=== PATIENT | male | born 1975 | race Two or more races ===

== ENCOUNTER → 2018-06-19 | Outpatient (CLI) | payer OTHER ==
[2018-06-19 08:32] LABS: BASO # 0.1 x10^3/uL (0.0-0.2); BASO % 1 % (0-3); EOS # 0.2 x10^3/uL (0.0-0.7); EOS % 2 % (0-3); HEMOGLOBIN 15.9 g/dL (13.0-17.5); LYMPH # 2.8 x10^3/uL (1.0-4.8); LYMPH % 39 % (24-48); MEAN CORPUSCULAR HEMOGLOBIN 29 pg (25-35); MEAN CORPUSCULAR HGB CONC 34 g/dL (31-37); MEAN CORPUSCULAR VOLUME 85 fL (79-100); MONO # 0.6 x10^3/uL (0.0-1.1); MONO % 9 % (0-9); NEUT # 3.5 x10^3uL (1.8-7.7); NEUT % 49 % (31-73); PLATELET COUNT 196 x10^3/uL (140-400); RED BLOOD COUNT 5.51 x10^6/uL (4.30-5.70); RED CELL DISTRIBUTION WIDTH 12.7 % (11.5-14.5); WHITE BLOOD COUNT 7.1 x10^3/uL (4.0-11.0)
[2018-06-19 08:36] LABS: ALBUMIN 4.1 g/dL (3.4-5.0); ALBUMIN/GLOBULIN RATIO 1.3 (1.0-1.7); CALCIUM 9.2 mg/dL (8.5-10.1); CREATININE 1.2 mg/dL (0.7-1.3); DIRECT BILIRUBIN 0.3 mg/dL (0.0-0.2); GFR 66.1; POTASSIUM 4.6 mmol/L (3.5-5.1); TOTAL BILIRUBIN 1.9 mg/dL (0.2-1.0); TOTAL PROTEIN 7.3 g/dL (6.4-8.2)
[2018-06-19 08:38] LABS: CHOLESTEROL/HDL RATIO 5.3
[2018-06-19 23:14] LABS: HEMOGLOBIN A1C 5.6 % (4.8-5.6)
== END | disposition home or self-care (01) ==
LOC: LAB 07:27
PROVIDERS: ATTEND Nurse Practitioner Family
DX: Z00.00 Encounter for general adult medical examination without abnormal findings (principal); R17 Unspecified jaundice
CPT/HCPCS: 36415; 80053; 80061; 82248; 83036; 83615; 84443; 85025

== ENCOUNTER → 2018-07-16 | Outpatient (CLI) | payer OTHER ==
--- NOTE | 2018-07-16 15:45 | EKG ---
[facility] [address] [place] [address] Test Date: 2018-07-16 Test Time: 15:39:33 Pat Name: QUENTIN SAMANO Department: Room: Gender: M Tear Down Matcher: AUGUSTO : 1975 Requested By: ALPHONSO ZEPEDA Order Number: [id number] Reading MD: Angelo Be MD Measurements Intervals [place] Rate: 79 P: 38 OR: 172 QRS: 90 QRSD: 94 T: 24 QT: 360 QTc: 414 Interpretive Statements SINUS RHYTHM Electronically Signed On 07-23-2018 13:49:19 CDT by Angelo Be MD
--- NOTE | 2018-07-16 16:04 | RAD ---
EXAM: Chest, 2 views. HISTORY: Epigastric pain. COMPARISON: None. FINDINGS: 2 views the chest are obtained. There is no infiltrate, pleural effusion or pneumothorax. The heart is normal in size. There are coarse likely chronic interstitial markings. IMPRESSION: No acute pulmonary finding. Electronically signed by: Sunita Valentin MD (07/16/2018 4:01 PM) [id number]
== END | disposition home or self-care (01) ==
LOC: RAD 15:24
PROVIDERS: ATTEND Family Medicine
DX: I45.10 Unspecified right bundle-branch block (principal)
CPT/HCPCS: 71046; 93005

== ENCOUNTER 2018-12-03 13:42 | Emergency (ER) | payer OTHER ==
[~2018-12-03] VITALS: Ht 175.3 cm; Wt 90.7 kg
[2018-12-03] MEDS ORDERED: KETOROLAC 60 MG/2 ML VIAL. IM ONE (15:30)
[2018-12-03] MEDS ORDERED: methylPREDNISolone SOD SUCC PF 125 MG/2 ML VIAL. IM ONE (15:30)
--- NOTE | 2018-12-03 15:48 | RAD ---
3 views lumbar spine 12/03/2018 INDICATION: Low back pain, new onset. No trauma. COMPARISON STUDY: None available. FINDINGS: No evidence of acute fracture or alignment abnormality is identified. Vertebral body heights are maintained. Disc spaces are maintained. No evidence of spondylolysis or spondylolisthesis is seen. No acute soft tissue changes are identified. IMPRESSION: No radiographic evidence of acute osseous abnormality. Electronically signed by: William Vang MD (12/03/2018 3:45 PM) [id number]
[2018-12-03 15:53] VITALS: BP 128/71
--- NOTE | 2018-12-03 16:06 | PHYS DOC ---
Adult General Chief Complaint Chief Complaint: BACK PAIN - NO INJURY HPI HPI Patient is a 43 year old male with no significant medical history who presents to the ED today complaining of moderate bilateral low back pain nonradiating in nature described as sharp and constant that has been going on since yesterday worse on standing up and ambulating. Patient denies any known injury. Denies any loss of bowel bladder function. Denies anything specifically relieving the pain. Off not patient works at [employer]. Review of Systems Review of Systems Constitutional: Denies fever or chills [] GI: Denies abdominal pain, nausea, vomiting, bloody stools or diarrhea [] : Denies dysuria or hematuria [] Musculoskeletal: Reports low back pain Integument: Denies rash or skin lesions [] Neurologic: Denies headache, focal weakness or sensory changes [] All other systems were reviewed and found to be within normal limits, except as documented in this note. Current Medications Current Medications Current Medications Medications (Trade) Dose Ordered Sig/Joyce Start Time Stop Time Status Last Admin Dose Admin Ketorolac Tromethamine (Toradol Im) 60 mg 1X ONCE 12/03/18 15:30 12/03/18 15:58 DC 12/03/18 16:09 60 MG Methylprednisolone Sodium Succinate (SOLU-Medrol 125MG VIAL) 125 mg 1X ONCE 12/03/18 15:30 12/03/18 15:58 DC 12/03/18 16:08 125 MG Allergies Allergies Allergies Coded Allergies Type Severity Reaction Last Updated Verified No Known Drug Allergies 12/03/18 No Physical Exam Physical Exam Constitutional: Well developed, well nourished, no acute distress, non-toxic appearance. [] Skin: Warm, dry, no erythema, no rash. [] Back: Breast noted to the lumbar spine, diffuse paraspinal muscle tenderness bilateral lumbar spine, no midline lumbar spine tenderness, no CVA tenderness. Straight leg raises not attempted because patient is comfortable in sitting position. Extremities: No tenderness, no cyanosis, no clubbing, ROM intact, no edema. [] Neurologic: Alert and oriented X 3, normal motor function, normal sensory functi on, no focal deficits noted. [] Psychologic: Affect normal, judgement normal, mood normal. [] Current Patient Data Vital Signs Vital Signs Date Time Temp Pulse Resp B/P (MAP) Pulse Ox O2 Delivery O2 Flow Rate FiO2 12/03/18 15:53 98.2 79 16 128/71 (90) 98 Room Air 98.2 EKG EKG [] Radiology/Procedures Radiology/Procedures []PROCEDURE: LUMBAR SPINE 2-3V 3 views lumbar spine 12/03/2018 INDICATION: Low back pain, new onset. No trauma. COMPARISON STUDY: None available. FINDINGS: No evidence of acute fracture or alignment abnormality is identified. Vertebral body heights are maintained. Disc spaces are maintained. No evidence of spondylolysis or spondylolisthesis is seen. No acute soft tissue changes are identified. IMPRESSION: No radiographic evidence of acute osseous abnormality. Electronically signed by: William Moreno MD (12/03/2018 3:45 PM) [id number] DICTATED and SIGNED BY: WILLIAM MORENO MD DATE: 12/03/18 1545 Course & Med Decision Making Course & Med Decision Making Pertinent Labs and Imaging studies reviewed. (See chart for details) This is a 43-year-old male patient who presents to the ED today complaining of bilateral low back pain that began yesterday, no known injury, no cauda equina syndrome symptoms. Lumbar spine x-rays are negative for any acute findings. Patient to be discharged to home. Instructed to apply heat to ice to the affected area. Given prescription for pain medicine Dragon Disclaimer Dragon Disclaimer This electronic medical record was generated, in whole or in part, using a voice recognition dictation system. Departure Departure Impression: Primary Impression: Low back pain Disposition: HOME, SELF-CARE Condition: STABLE Referrals: ALPHONSO ZEPEDA MD (PCP) follow up in 7 days Patient Instructions: Back Pain, Adult, [id number] Additional Instructions: You were evaluated for low back pain, your lumbar spine x-rays are negative for any acute findings. Try to apply heat or ice to the affected area. Take the prescribed medications as ordered. Follow-up with your doctor in the course of this week. Scripts Hydrocodone/Apap 5-325 (NORCO 5-325 TABLET) 1 Each Tablet 1 TAB PO Q6HRS PRN for SEVERE PAIN 7-10, #20 TAB Prov: [employer] 12/03/18 Diclofenac Sodium (DICLOFENAC SODIUM) 50 Mg Tablet.dr 1 TAB PO BID, #20 TAB 0 Refills Prov: [employer] DIRECT[employer] 12/03/18 Cyclobenzaprine Hcl (CYCLOBENZAPRINE HCL) 10 Mg Tablet 1 TAB PO TID, #30 TAB Prov: CHANTE BOLAÑOS YUE 12/03/18 Methylprednisolone (MEDROL) 4 Mg Tab.ds.pk 1 PKG PO UD, #1 PKG Prov: CHANTE BOLAÑOS YUE 12/03/18 Problem Qualifiers Primary Impression: Low back pain Chronicity: acute Back pain laterality: bilateral Sciatica presence: without sciatica Qualified Codes: M54.5 - Low back pain CHANTE BOLAÑOS YUE Dec 03, 2018 16:06
[2018-12-03] MEDS ORDERED: DICL50TA4 PO (16:18)
[2018-12-03] MEDS ORDERED: CYCL10TA2 PO (16:18)
[2018-12-03] MEDS ORDERED: METH4TAB2 PO (16:18)
[2018-12-03] MEDS ORDERED: HYDR-3164 PO (16:18)
== END 2018-12-03 16:27 | disposition home or self-care (01) ==
LOC: ER 13:42
DX: M54.5 Low back pain (principal)
CPT/HCPCS: 72100; 96372; 99284; J1885; J2930

== ENCOUNTER → 2020-04-01 | Outpatient (CLI) | payer OTHER ==
[~2020-04-01] MED LIST: CYCL10TA2 PO; DICL50TA4 PO; HYDR-3164 PO; METH4TAB2 PO
== END ==
LOC: LAB 11:44
PROVIDERS: ATTEND Internal Medicine Pulmonary Disease
DX: U07.1 COVID-19 (principal)
CPT/HCPCS: U0003

== ENCOUNTER → 2020-05-19 | Outpatient (CLI) | payer OTHER ==
--- NOTE | 2020-05-19 16:25 | RAD ---
XR CHEST 2V INDICATION: DYSPNEA . COMPARISON STUDY: None. FINDINGS: Lungs: Normal lung volume. No pulmonary mass or consolidation. The tracheobronchial tree and hilar st ructures are normal. Pleura: No pleural effusion or pneumothorax. Heart and Mediastinum: The cardiomediastinal silhouette is normal. The great vessels of the thorax ar e normal. Bones and Soft Tissues: The bones and soft tissues are within normal limits. IMPRESSION: No acute cardiopulmonary process. Electronically signed by: Scooby Barahona MD (05/19/2020 4:23 PM) [id number]
== END ==
LOC: RAD 15:30
PROVIDERS: ATTEND Family Medicine
DX: Z00.00 Encounter for general adult medical examination without abnormal findings (principal); R06.00 Dyspnea, unspecified
CPT/HCPCS: 71046

== ENCOUNTER → 2020-05-22 | Outpatient (CLI) | payer OTHER ==
[2020-05-22 10:38] LABS: BASO # 0.1 x10^3/uL (0.0-0.2); BASO % 1 % (0-3); EOS # 0.1 x10^3/uL (0.0-0.7); EOS % 1 % (0-3); HEMATOCRIT 46.7 % (39.0-53.0); HEMOGLOBIN 16.2 g/dL (13.0-17.5); LYMPH # 2.7 x10^3/uL (1.0-4.8); LYMPH % 20 % (24-48); MEAN CORPUSCULAR HEMOGLOBIN 29 pg (25-35); MEAN CORPUSCULAR HGB CONC 35 g/dL (31-37); MEAN CORPUSCULAR VOLUME 85 fL (79-100); MONO # 0.9 x10^3/uL (0.0-1.1); MONO % 7 % (0-9); NEUT # 9.7 x10^3/uL (1.8-7.7); NEUT % 73 % (31-73); PLATELET COUNT 219 x10^3/uL (140-400); RED CELL DISTRIBUTION WIDTH 13.4 % (11.5-14.5); WHITE BLOOD COUNT 13.4 x10^3/uL (4.0-11.0)
[2020-05-22 11:04] LABS: ALBUMIN 4.5 g/dL (3.4-5.0); ALBUMIN/GLOBULIN RATIO 1.5 (1.0-1.7); C-REACTIVE PROTEIN 1.1 mg/L (0-3.3); CALCIUM 9.1 mg/dL (8.5-10.1); CREATININE 1.3 mg/dL (0.7-1.3); POTASSIUM 4.5 mmol/L (3.5-5.1); TOTAL BILIRUBIN 1.7 mg/dL (0.2-1.0); TOTAL PROTEIN 7.6 g/dL (6.4-8.2)
[2020-05-22 11:08] LABS: CHOLESTEROL/HDL RATIO 6.1
[2020-05-23 02:11] LABS: HEMOGLOBIN A1C 5.5 % (4.8-5.6)
== END ==
LOC: LAB 09:20
PROVIDERS: ATTEND Family Medicine
DX: Z00.00 Encounter for general adult medical examination without abnormal findings (principal); R06.00 Dyspnea, unspecified
CPT/HCPCS: 36415; 80053; 80061; 82306; 83036; 84443; 85025; 86140

== ENCOUNTER → 2020-06-22 | Outpatient (CLI) | payer OTHER ==
--- NOTE | 2020-06-23 10:53 | CARD ---
MR#: [id number] Date of Study: 06/22/2020 Ordering Physician: CELI CARRANZA, Referring Physician: Sharita HERRERA: Ilana Daily RDCS APPROVED REPORT INDICATION Dyspnea on Exertion PROCEDURE The patient underwent an Exercise Stress Test using the Omar Protocol. Blood pressure, heart rate, a nd EKG were monitored. An Echocardiogram was performed by technical maintenance technician in four stages in quad fashion. At peak stress four se lected images were obtained and placed side by side with resting images for comparison. STRESS ECHO FINDINGS The resting Echocardiogram showed normal left ventricular systolic contractility with an estimated Ej ection Fraction of about 60 %. The Resting Echocardiogram showed normal augmentation of myocardial wall segments using a 16 segment model. The Stress Echocardiogram showed normal augmentation of myocardial wall segments using a 16 segment m elen. The Stress Echocardiogram left ventricular systolic contractility has an estimated Ejection Fraction of about 65%. Test Type: Exercise Stress Nurse/Tech: All RN Test Indications: Palpitations, Dyspnea on Exertion Cardiac History and Allergies: See EMR. Medications: See EMR. Medical History: See EMR. Resting ECG: SR Resting Heart Rate: 74 bpm Resting Blood Pressure: 128/65mmHg Pretest Chest Pain: No chest pain Nurse/Tech Notes Lungs CTA, Heart tones regular. Consent: The procedure was explained to the patient in lay terms. Informed consent was witnessed. Luke eout was entered into [employer]. History and Stress Test performed by Joanne Nguyễn R.N. Stress Symptoms No chest pain or symptoms. POST EXERCISE Reason for Termination: Reached target heart rate Target HR: Yes Max HR: 170 bpm 97% of Maximum Predicted HR: 175 bpm Exercise duration: 11:31 min:sec, 4 Stage Exercise capacity: 12.8METs Max Blood Pressure: 158/82mmHg Blood Pressure response to exercise: Normal blood pressure response during stress. Heart Rate response to exercise: WNL Chest Pain: No. Arrhythmia: No. ST Change: No. INTERPRETATION Stress EKG Conclusion: The resting EKG showed a sinus rhythm. The stress EKG showed no significant changes from baseline. No EKG evidence of stress-induced ischemia. Preliminary Notification Critical Value: No <Conclusion> Good exercise tolerance with the patient walking for 11 minutes and 41 seconds on a Omar protocol. No reported chest pain with exertion. No EKG evidence of stress-induced ischemia. Normal LV systolic function at rest. Normal LV response to exertion with no regional wall motion abnormalities. Low risk treadmill echo stress test. Signed by : Panchito Sykes MD Electronically Approved : 06/23/2020 10:52:48
== END ==
LOC: ECHO 12:26
PROVIDERS: ATTEND Internal Medicine Cardiovascular Disease
DX: R06.09 Other forms of dyspnea (principal); R00.2 Palpitations
CPT/HCPCS: 93017; 93350

== ENCOUNTER → 2020-07-11 | Outpatient (CLI) | payer OTHER ==
[~2020-07-11] MED LIST changes: +OXYMETAZOLINE 0.05% NASAL SPRAY 30ML BOTTLE. NS ONE
--- NOTE | 2020-07-12 09:30 | SLEEP ---
DATE OF STUDY: 07/11/2020 SLEEP STUDY REFERRING PHYSICIAN: Guy Michel MD. The patient is a 45-year-old who weighs 205 pounds with a BMI of 30. The patient's [place] score was 12. The patient underwent split night study performed at [facility]. During the night study, the patient spent 429 minutes in bed and slept for 227 minutes with a low sleep efficiency of 53%. Sleep latency was 7 minutes with a REM latency of 63 minutes. Overall, sleep architecture showed increased stage 1 sleep, normal stage 2 sleep, normal slow wave and normal REM sleep. During the initial diagnostic portion of the study, the patient slept for 133 minutes. During that time, there were no obstructive apneas, no mixed apneas, 1 central apnea and 36 hypopneas. The patient's AHI was 17 per hour with a supine AHI of 21 per hour. REM sleep was not seen during the diagnostic portion of the study. EKG monitoring revealed an average heart rate of 75 beats per minute, no sustained arrhythmias observed. Nocturnal oximetry study revealed a mean oxygen saturation 91% with the lowest of 80%. Only 1.8% of the time, oxygen saturation remained between 80% and 89%. No PLMs observed. The patient met the criteria for CPAP initiation. It was started at 5 cm water and titrated up to 18 cm water. The patient says that he never sleeps supine at home. He did have some supine sleep. There was a long REM period observed at the final pressure. The patient's AHI was reduced to 8 per hour and was mostly related to treatment emergent central apneas. All hypopneas as well as obstructive apneas were resolved. Oxygen saturation remained 93% and above. The patient used medium size full face mask. The patient slept for 46 minutes at the final pressure of 18 cm water. IMPRESSION: 1. Moderate obstructive sleep apnea at an AHI of 17 per hour. 2. No clinically significant nocturnal hypoxia. 3. No clinically significant periodic limb movements. RECOMMENDATIONS: 1. CPAP at 18 cm water should be used on a nightly basis. 2. Follow up in 4-6 weeks to assess compliance with CPAP and to document clinical improvement. 3. Weight loss is advised. 4. Avoid TRAFFIC ADMINISTRATOR depressants. 5. Cautioned regarding driving until symptoms of sleep apnea resolve with the use of CPAP. 6. The patient used medium size full face mask. MARISSA CHATTERJEE MD DR: Germán JOB#: [id number] / [id number]
== END ==
LOC: RT 19:15
PROVIDERS: ATTEND Family Medicine
DX: G47.33 Obstructive sleep apnea (adult) (pediatric) (principal)
CPT/HCPCS: 95810

== ENCOUNTER → 2020-08-07 | Outpatient (CLI) | payer OTHER ==
[~2020-08-07] MED LIST changes: -OXYMETAZOLINE 0.05% NASAL SPRAY 30ML BOTTLE. NS ONE
== END ==
LOC: LAB 09:24
PROVIDERS: ATTEND Surgery
DX: Z01.812 Encounter for preprocedural laboratory examination (principal); Z20.822 Contact with and (suspected) exposure to COVID-19
CPT/HCPCS: U0003; U0005

== ENCOUNTER → 2021-01-01 | Outpatient (CLI) | payer OTHER ==
[2021-01-01 08:27] LABS: ALBUMIN 4.2 g/dL (3.4-5.0); ALBUMIN/GLOBULIN RATIO 1.6 (1.0-1.7); CALCIUM 8.7 mg/dL (8.5-10.1); CREATININE 1.3 mg/dL (0.7-1.3); GFR 59.7; POTASSIUM 4.2 mmol/L (3.5-5.1); TOTAL BILIRUBIN 1.5 mg/dL (0.2-1.0); TOTAL PROTEIN 6.9 g/dL (6.4-8.2)
[2021-01-01 08:28] LABS: CHOLESTEROL/HDL RATIO 6.9
[2021-01-01 09:06] LABS: BASO # 0.1 x10^3/uL (0.0-0.2); BASO % 1 % (0-3); EOS # 0.2 x10^3/uL (0.0-0.7); EOS % 4 % (0-3); HEMATOCRIT 43.9 % (39.0-53.0); HEMOGLOBIN 15.4 g/dL (13.0-17.5); LYMPH % 45 % (24-48); MEAN CORPUSCULAR HEMOGLOBIN 30 pg (25-35); MEAN CORPUSCULAR HGB CONC 35 g/dL (31-37); MEAN CORPUSCULAR VOLUME 86 fL (79-100); MONO # 0.5 x10^3/uL (0.0-1.1); MONO % 8 % (0-9); NEUT # 2.8 x10^3/uL (1.8-7.7); NEUT % 43 % (31-73); PLATELET COUNT 179 x10^3/uL (140-400); RED BLOOD COUNT 5.12 x10^6/uL (4.30-5.70); WHITE BLOOD COUNT 6.6 x10^3/uL (4.0-11.0)
[2021-01-02 01:12] LABS: HEMOGLOBIN A1C 5.6 % (4.8-5.6)
== END ==
LOC: LAB 07:36
PROVIDERS: ATTEND Family Medicine
DX: R74.8 Abnormal levels of other serum enzymes (principal); E78.5 Hyperlipidemia, unspecified; R73.01 Impaired fasting glucose; D72.829 Elevated white blood cell count, unspecified
CPT/HCPCS: 36415; 80053; 80061; 83036; 85025